=== PATIENT | female | born 1975 | race Caucasian/White ===

== ENCOUNTER 2025-01-19 06:25 | Day surgery (SDC) | payer BC, SELFPAY | END 2025-01-19 09:06 | disposition home or self-care (01) | LOC: GI 06:25 | PROVIDERS: ATTENDING PHYSICIAN Internal Medicine Gastroenterology | DX: Z12.11 Encounter for screening for malignant neoplasm of colon (principal); K57.30 Diverticulosis of large intestine without perforation or abscess without bleeding; K64.8 Other hemorrhoids; K63.5 Polyp of colon; Z86.0100 Personal history of colon polyps, unspecified | CPT/HCPCS: 45380; 88305 ==